=== PATIENT | male | born 1990 | race African-American/Black ===

== ENCOUNTER 2022-07-05 17:05 | Inpatient (IN) | payer OTHER ==
[2022-07-05 18:02] VITALS: BMI 34.8
[2022-07-05] MEDS ORDERED: guaiFENesin 600 MG TABLET.ER (FP) PO PRN (21:52)
[2022-07-05] MEDS ORDERED: IBUPROFEN 600 MG TABLET (FP) PO PRN (21:52)
[2022-07-05] MEDS ORDERED: POLYETHYLENE GLYCOL (HEALTHYLAX) 3350 17 GM PACKET PO PRN (21:52)
[2022-07-05] MEDS ORDERED: ACETAMINOPHEN 325 MG TABLET (FP) PO PRN (21:52)
[2022-07-05] MEDS ORDERED: BENZONATATE 200 MG CAPSULE PO PRN (21:52)
[2022-07-05] MEDS ORDERED: NALOXONE HCL (KLOXXADO) 8 MG SPRAY NS PRN (21:52)
[2022-07-05] MEDS ORDERED: MAGNESIUM HYDROX 2400MG/30ML ORAL SUSPENSION 30 ML CUP PO PRN (21:52)
[2022-07-05] MEDS ORDERED: BENZOCAINE/MENTHOL (CHLORASEPTIC ) LOZENGE MM PRN (21:52)
[2022-07-05] MEDS ORDERED: LOPERAMIDE HCL 2 MG CAPSULE PO PRN (21:52)
[2022-07-05] MEDS ORDERED: NALOXONE HCL 0.4 MG/ML VIAL IM PRN (21:52)
[2022-07-05] MEDS ORDERED: IBUPROFEN 400 MG TABLET (FP) PO PRN (21:52)
[2022-07-05] MEDS: MELATONIN 5 MG TABLETS PO SCH (23:55)
[2022-07-05] MEDS: THIAMINE HCL 100 MG TABLET (FP) PO SCH (23:55)
[2022-07-06] MEDS ORDERED: MAG HYDROX/AL HYDROX/SIMETH 30 ML UNIT-DOSE CUP ONE (00:06)
[2022-07-06] MEDS: MAG HYDROX/AL HYDROX/SIMETH 30 ML UNIT-DOSE CUP PO PRN (00:06)
[2022-07-06] MEDS: PRENATAL VITAMINS W/ FOLIC ACID TABLET (FP) PO SCH (09:45)
[2022-07-06] MEDS: NICOTINE 14 MG/24 HOURS TOPICAL PATCH TD SCH (09:45)
[2022-07-06 11:11] LABS: HEMATOCRIT 46.5 % (35.4-49); HEMOGLOBIN 15.4 GM/dL (11.7-16.9); MCH 26.2 pg (25.7-33.7); MEAN CELL VOLUME 79.3 fl (80-96); MEAN PLT VOLUME 8.8 fl (7.5-11.1); PLATELET COUNT 290 10^3/uL (134-434); RBC 5.87 M/mm3 (4.00-5.60); RDW 14.5 % (11.9-15.9); WHITE BLOOD COUNT 5.6 K/mm3 (4.0-10.0)
[2022-07-06 11:32] LABS: EPI CELLS 21 /uL (0-25.1); HYALINE CASTS 6 /uL (0-3.1); PH,URINE 5.5 (5.0-8.0); URINE APPEARANCE CLEAR; URINE BACTERIA 18 /uL (0-1359); URINE BILIRUBIN NEGATIVE (NEGATIVE); URINE COLOR YELLOW; URINE GLUCOSE (UA) NEGATIVE (NEGATIVE); URINE KETONE NEGATIVE (NEGATIVE); URINE LEUK ESTERASE 1+ (NEGATIVE); URINE NITRITE NEGATIVE (NEGATIVE); URINE PROTEIN NEGATIVE (NEGATIVE); URINE RBC 4 /uL (0-23.9); URINE UROBILINOGEN 0.2 mg/dL (0.2-1.0); URINE WBC 282 /uL (0-25.8)
[2022-07-06 15:53] LABS: ALBUMIN 3.5 g/dl (3.4-5.0); BLOOD UREA NITROGEN 11.6 mg/dL (7-18)
[2022-07-06 15:55] LABS: CREATININE 1.2 mg/dL (0.55-1.3)
[2022-07-06 15:56] LABS: BILIRUBIN,TOTAL 0.3 mg/dL (0.2-1); TOT PROT 7.2 g/dl (6.4-8.2)
[2022-07-06] MEDS: MELATONIN 5 MG TABLETS PO SCH (21:14)
[2022-07-06] MEDS: THIAMINE HCL 100 MG TABLET (FP) PO SCH (21:14)
[2022-07-06] MEDS: OLANZapine 5 MG TABLET PO SCH (21:14)
[2022-07-06] MEDS: traZODone HCL 50 MG TABLET (FP) PO SCH (21:14)
[2022-07-07] MEDS: PRENATAL VITAMINS W/ FOLIC ACID TABLET (FP) PO SCH (09:53)
[2022-07-07] MEDS: NICOTINE 14 MG/24 HOURS TOPICAL PATCH TD SCH (09:53)
[2022-07-07] MEDS: NICOTINE 10 MG CARTRIDGE (INHALER) IH PRN (15:21)
[2022-07-07] MEDS: THIAMINE HCL 100 MG TABLET (FP) PO SCH (21:39)
[2022-07-07] MEDS: MELATONIN 5 MG TABLETS PO SCH (21:39)
[2022-07-07] MEDS: OLANZapine 5 MG TABLET PO SCH (21:39)
[2022-07-07] MEDS: traZODone HCL 50 MG TABLET (FP) PO SCH (21:39)
[2022-07-08] MEDS: NICOTINE 14 MG/24 HOURS TOPICAL PATCH TD SCH (09:46)
[2022-07-08] MEDS: PRENATAL VITAMINS W/ FOLIC ACID TABLET (FP) PO SCH (09:46)
[2022-07-08] MEDS ORDERED: SULFAMETHOXAZOLE/TRIMETHOPRIM 800MG/160MG D.S. TABLET PO SCH (11:30)
[2022-07-08] MEDS: SULFAMETHOXAZOLE/TRIMETHOPRIM 800MG/160MG D.S. TABLET PO SCH ×2 (12:05→21:31)
[2022-07-08] MEDS: traZODone HCL 50 MG TABLET (FP) PO SCH (21:31)
[2022-07-08] MEDS: OLANZapine 5 MG TABLET PO SCH (21:31)
[2022-07-08] MEDS: MELATONIN 5 MG TABLETS PO SCH (21:32)
[2022-07-08] MEDS: THIAMINE HCL 100 MG TABLET (FP) PO SCH (21:32)
[2022-07-09] MEDS: PRENATAL VITAMINS W/ FOLIC ACID TABLET (FP) PO SCH (10:07)
[2022-07-09] MEDS: SULFAMETHOXAZOLE/TRIMETHOPRIM 800MG/160MG D.S. TABLET PO SCH ×2 (10:08→21:19)
[2022-07-09] MEDS: NICOTINE 14 MG/24 HOURS TOPICAL PATCH TD SCH (10:08)
[2022-07-09] MEDS: MELATONIN 5 MG TABLETS PO SCH (21:19)
[2022-07-09] MEDS: OLANZapine 5 MG TABLET PO SCH (21:19)
[2022-07-09] MEDS: traZODone HCL 50 MG TABLET (FP) PO SCH (21:19)
[2022-07-09] MEDS: THIAMINE HCL 100 MG TABLET (FP) PO SCH (21:19)
[2022-07-10] MEDS: NICOTINE 14 MG/24 HOURS TOPICAL PATCH TD SCH (10:29)
[2022-07-10] MEDS: SULFAMETHOXAZOLE/TRIMETHOPRIM 800MG/160MG D.S. TABLET PO SCH ×2 (10:29→21:06)
[2022-07-10] MEDS: PRENATAL VITAMINS W/ FOLIC ACID TABLET (FP) PO SCH (10:29)
[2022-07-10] MEDS: OLANZapine 5 MG TABLET PO SCH (21:06)
[2022-07-10] MEDS: MELATONIN 5 MG TABLETS PO SCH (21:06)
[2022-07-10] MEDS: THIAMINE HCL 100 MG TABLET (FP) PO SCH (21:06)
[2022-07-10] MEDS: traZODone HCL 50 MG TABLET (FP) PO SCH (21:06)
[2022-07-11] MEDS: SULFAMETHOXAZOLE/TRIMETHOPRIM 800MG/160MG D.S. TABLET PO SCH ×2 (10:00→21:12)
[2022-07-11] MEDS: PRENATAL VITAMINS W/ FOLIC ACID TABLET (FP) PO SCH (10:00)
[2022-07-11] MEDS: NICOTINE 14 MG/24 HOURS TOPICAL PATCH TD SCH (10:00)
[2022-07-11] MEDS ORDERED: hydrOXYzine PAMOATE 25 MG CAPSULE (FP) PO PRN (11:01)
[2022-07-11] MEDS: MELATONIN 5 MG TABLETS PO SCH (21:12)
[2022-07-11] MEDS: traZODone HCL 50 MG TABLET (FP) PO SCH (21:12)
[2022-07-11] MEDS: OLANZapine 5 MG TABLET PO SCH (21:12)
[2022-07-11] MEDS: THIAMINE HCL 100 MG TABLET (FP) PO SCH (21:12)
[2022-07-12] MEDS: PRENATAL VITAMINS W/ FOLIC ACID TABLET (FP) PO SCH (10:22)
[2022-07-12] MEDS: NICOTINE 14 MG/24 HOURS TOPICAL PATCH TD SCH (10:22)
[2022-07-12] MEDS: SULFAMETHOXAZOLE/TRIMETHOPRIM 800MG/160MG D.S. TABLET PO SCH ×2 (10:22→21:05)
[2022-07-12] MEDS: OLANZapine 5 MG TABLET PO SCH (21:05)
[2022-07-12] MEDS: THIAMINE HCL 100 MG TABLET (FP) PO SCH (21:05)
[2022-07-12] MEDS: traZODone HCL 50 MG TABLET (FP) PO SCH (21:05)
[2022-07-12] MEDS: MELATONIN 5 MG TABLETS PO SCH (21:05)
[2022-07-13] MEDS: PRENATAL VITAMINS W/ FOLIC ACID TABLET (FP) PO SCH (10:29)
[2022-07-13] MEDS: SULFAMETHOXAZOLE/TRIMETHOPRIM 800MG/160MG D.S. TABLET PO SCH ×2 (10:29→21:13)
[2022-07-13] MEDS: NICOTINE 14 MG/24 HOURS TOPICAL PATCH TD SCH (10:30)
[2022-07-13] MEDS: traZODone HCL 50 MG TABLET (FP) PO SCH (21:13)
[2022-07-13] MEDS: THIAMINE HCL 100 MG TABLET (FP) PO SCH (21:13)
[2022-07-13] MEDS: MELATONIN 5 MG TABLETS PO SCH (21:13)
[2022-07-13] MEDS: OLANZapine 5 MG TABLET PO SCH (21:13)
[2022-07-14] MEDS: SULFAMETHOXAZOLE/TRIMETHOPRIM 800MG/160MG D.S. TABLET PO SCH ×2 (10:36→21:22)
[2022-07-14] MEDS: NICOTINE 14 MG/24 HOURS TOPICAL PATCH TD SCH (10:36)
[2022-07-14] MEDS: PRENATAL VITAMINS W/ FOLIC ACID TABLET (FP) PO SCH (10:36)
[2022-07-14] MEDS: MELATONIN 5 MG TABLETS PO SCH (21:22)
[2022-07-14] MEDS: traZODone HCL 50 MG TABLET (FP) PO SCH (21:22)
[2022-07-14] MEDS: OLANZapine 5 MG TABLET PO SCH (21:22)
[2022-07-14] MEDS: THIAMINE HCL 100 MG TABLET (FP) PO SCH (21:22)
[2022-07-15] MEDS: PRENATAL VITAMINS W/ FOLIC ACID TABLET (FP) PO SCH (10:04)
[2022-07-15] MEDS: SULFAMETHOXAZOLE/TRIMETHOPRIM 800MG/160MG D.S. TABLET PO SCH (10:04)
[2022-07-15] MEDS: NICOTINE 14 MG/24 HOURS TOPICAL PATCH TD SCH (10:05)
[2022-07-15] MEDS: SODIUM CHLORIDE NASAL SPRAY 44 ML BOTTLE NS PRN (21:16)
[2022-07-15] MEDS: MELATONIN 5 MG TABLETS PO SCH (21:16)
[2022-07-15] MEDS: THIAMINE HCL 100 MG TABLET (FP) PO SCH (21:16)
[2022-07-15] MEDS: traZODone HCL 50 MG TABLET (FP) PO SCH (21:16)
[2022-07-15] MEDS: OLANZapine 5 MG TABLET PO SCH (21:16)
[2022-07-15] MEDS: LORATADINE 10 MG TABLET PO PRN (23:36)
[2022-07-16] MEDS: PRENATAL VITAMINS W/ FOLIC ACID TABLET (FP) PO SCH (10:32)
[2022-07-16] MEDS: NICOTINE 14 MG/24 HOURS TOPICAL PATCH TD SCH (10:32)
[2022-07-16] MEDS: THIAMINE HCL 100 MG TABLET (FP) PO SCH (21:20)
[2022-07-16] MEDS: MELATONIN 5 MG TABLETS PO SCH (21:20)
[2022-07-16] MEDS: traZODone HCL 50 MG TABLET (FP) PO SCH (21:20)
[2022-07-16] MEDS: OLANZapine 5 MG TABLET PO SCH (21:20)
[2022-07-16] MEDS: LORATADINE 10 MG TABLET PO PRN (21:21)
[2022-07-16] MEDS: SODIUM CHLORIDE NASAL SPRAY 44 ML BOTTLE NS PRN (21:22)
[2022-07-17] MEDS: PRENATAL VITAMINS W/ FOLIC ACID TABLET (FP) PO SCH (09:42)
[2022-07-17] MEDS: NICOTINE 14 MG/24 HOURS TOPICAL PATCH TD SCH (09:43)
[2022-07-17] MEDS: OLANZapine 5 MG TABLET PO SCH (21:25)
[2022-07-17] MEDS: LORATADINE 10 MG TABLET PO PRN (21:25)
[2022-07-17] MEDS: traZODone HCL 50 MG TABLET (FP) PO SCH (21:25)
[2022-07-17] MEDS: MELATONIN 5 MG TABLETS PO SCH (21:25)
[2022-07-17] MEDS: THIAMINE HCL 100 MG TABLET (FP) PO SCH (21:25)
[2022-07-18] MEDS: PRENATAL VITAMINS W/ FOLIC ACID TABLET (FP) PO PRN (09:44)
[2022-07-18] MEDS: NICOTINE 14 MG/24 HOURS TOPICAL PATCH TD SCH (10:24)
[2022-07-18] MEDS: MAG HYDROX/AL HYDROX/SIMETH 30 ML UNIT-DOSE CUP PO PRN (18:57)
[2022-07-18] MEDS: MELATONIN 5 MG TABLETS PO SCH (21:20)
[2022-07-18] MEDS: THIAMINE HCL 100 MG TABLET (FP) PO SCH (21:20)
[2022-07-18] MEDS: OLANZapine 5 MG TABLET PO SCH (21:21)
[2022-07-18] MEDS: traZODone HCL 50 MG TABLET (FP) PO SCH (21:21)
[2022-07-18] MEDS: LORATADINE 10 MG TABLET PO PRN (21:21)
[2022-07-18] MEDS: SODIUM CHLORIDE NASAL SPRAY 44 ML BOTTLE NS PRN (21:21)
[2022-07-19] MEDS: PRENATAL VITAMINS W/ FOLIC ACID TABLET (FP) PO PRN (09:59)
[2022-07-19] MEDS: NICOTINE 14 MG/24 HOURS TOPICAL PATCH TD SCH (10:00)
[2022-07-19] MEDS: OLANZapine 5 MG TABLET PO SCH (21:29)
[2022-07-19] MEDS: THIAMINE HCL 100 MG TABLET (FP) PO SCH (21:29)
[2022-07-19] MEDS: MELATONIN 5 MG TABLETS PO SCH (21:29)
[2022-07-19] MEDS: LORATADINE 10 MG TABLET PO PRN (21:29)
[2022-07-19] MEDS: traZODone HCL 50 MG TABLET (FP) PO SCH (21:29)
[2022-07-20] MEDS: PRENATAL VITAMINS W/ FOLIC ACID TABLET (FP) PO PRN (10:11)
[2022-07-20] MEDS: NICOTINE 14 MG/24 HOURS TOPICAL PATCH TD SCH (10:11)
[2022-07-20] MEDS: MELATONIN 5 MG TABLETS PO SCH (21:39)
[2022-07-20] MEDS: THIAMINE HCL 100 MG TABLET (FP) PO SCH (21:39)
[2022-07-20] MEDS: OLANZapine 5 MG TABLET PO SCH (21:39)
[2022-07-20] MEDS: traZODone HCL 50 MG TABLET (FP) PO SCH (21:39)
[2022-07-20] MEDS: SODIUM CHLORIDE NASAL SPRAY 44 ML BOTTLE NS PRN (21:40)
[2022-07-20] MEDS: LORATADINE 10 MG TABLET PO PRN (21:40)
[2022-07-21] MEDS: NICOTINE 14 MG/24 HOURS TOPICAL PATCH TD SCH (10:47)
[2022-07-21] MEDS: THIAMINE HCL 100 MG TABLET (FP) PO SCH (21:45)
[2022-07-21] MEDS: traZODone HCL 50 MG TABLET (FP) PO SCH (21:45)
[2022-07-21] MEDS: OLANZapine 5 MG TABLET PO SCH (21:45)
[2022-07-21] MEDS: MELATONIN 5 MG TABLETS PO SCH (21:46)
[2022-07-21] MEDS: LORATADINE 10 MG TABLET PO PRN (21:47)
[2022-07-21] MEDS: SODIUM CHLORIDE NASAL SPRAY 44 ML BOTTLE NS PRN (21:48)
[2022-07-22] MEDS: NICOTINE 14 MG/24 HOURS TOPICAL PATCH TD SCH (10:01)
[2022-07-22] MEDS: THIAMINE HCL 100 MG TABLET (FP) PO SCH (21:17)
[2022-07-22] MEDS: MELATONIN 5 MG TABLETS PO SCH (21:17)
[2022-07-22] MEDS: OLANZapine 5 MG TABLET PO SCH (21:17)
[2022-07-22] MEDS: traZODone HCL 50 MG TABLET (FP) PO SCH (21:17)
[2022-07-22] MEDS: LORATADINE 10 MG TABLET PO PRN (21:19)
[2022-07-23] MEDS: NICOTINE 14 MG/24 HOURS TOPICAL PATCH TD SCH (10:13)
[2022-07-23] MEDS: SODIUM CHLORIDE NASAL SPRAY 44 ML BOTTLE NS PRN (21:28)
[2022-07-23] MEDS: MELATONIN 5 MG TABLETS PO SCH (21:28)
[2022-07-23] MEDS: traZODone HCL 50 MG TABLET (FP) PO SCH (21:28)
[2022-07-23] MEDS: LORATADINE 10 MG TABLET PO PRN (21:28)
[2022-07-23] MEDS: THIAMINE HCL 100 MG TABLET (FP) PO SCH (21:29)
[2022-07-23] MEDS: OLANZapine 5 MG TABLET PO SCH (21:29)
[2022-07-24] MEDS: NICOTINE 14 MG/24 HOURS TOPICAL PATCH TD SCH (10:27)
[2022-07-24] MEDS: THIAMINE HCL 100 MG TABLET (FP) PO SCH (21:13)
[2022-07-24] MEDS: LORATADINE 10 MG TABLET PO PRN (21:14)
[2022-07-24] MEDS: traZODone HCL 50 MG TABLET (FP) PO SCH (21:14)
[2022-07-24] MEDS: MELATONIN 5 MG TABLETS PO SCH (21:14)
[2022-07-24] MEDS: OLANZapine 5 MG TABLET PO SCH (21:14)
[2022-07-24] MEDS: SODIUM CHLORIDE NASAL SPRAY 44 ML BOTTLE NS PRN (21:15)
[2022-07-25] MEDS: NICOTINE 14 MG/24 HOURS TOPICAL PATCH TD SCH (09:13)
[2022-07-25] MEDS: PRENATAL VITAMINS W/ FOLIC ACID TABLET (FP) PO PRN (09:47)
[2022-07-25] MEDS: traZODone HCL 50 MG TABLET (FP) PO SCH (21:11)
[2022-07-25] MEDS: OLANZapine 5 MG TABLET PO SCH (21:11)
[2022-07-25] MEDS: MELATONIN 5 MG TABLETS PO SCH (21:11)
[2022-07-25] MEDS: THIAMINE HCL 100 MG TABLET (FP) PO SCH (21:11)
[2022-07-25] MEDS: SODIUM CHLORIDE NASAL SPRAY 44 ML BOTTLE NS PRN (21:11)
[2022-07-25] MEDS: LORATADINE 10 MG TABLET PO PRN (21:11)
[2022-07-26] MEDS: NICOTINE 14 MG/24 HOURS TOPICAL PATCH TD SCH (10:29)
[2022-07-26] MEDS: MELATONIN 5 MG TABLETS PO SCH (21:18)
[2022-07-26] MEDS: OLANZapine 5 MG TABLET PO SCH (21:19)
[2022-07-26] MEDS: THIAMINE HCL 100 MG TABLET (FP) PO SCH (21:19)
[2022-07-26] MEDS: traZODone HCL 50 MG TABLET (FP) PO SCH (21:19)
[2022-07-26] MEDS: LORATADINE 10 MG TABLET PO PRN (21:21)
[2022-07-26] MEDS: SODIUM CHLORIDE NASAL SPRAY 44 ML BOTTLE NS PRN (21:21)
[2022-07-27] MEDS: NICOTINE 14 MG/24 HOURS TOPICAL PATCH TD SCH (09:52)
[2022-07-27] MEDS: NICOTINE 10 MG CARTRIDGE (INHALER) IH PRN (16:34)
[2022-07-27] MEDS: THIAMINE HCL 100 MG TABLET (FP) PO SCH (21:17)
[2022-07-27] MEDS: SODIUM CHLORIDE NASAL SPRAY 44 ML BOTTLE NS PRN (21:17)
[2022-07-27] MEDS: MELATONIN 5 MG TABLETS PO SCH (21:17)
[2022-07-27] MEDS: LORATADINE 10 MG TABLET PO PRN (21:18)
[2022-07-27] MEDS: traZODone HCL 50 MG TABLET (FP) PO SCH (21:18)
[2022-07-27] MEDS: OLANZapine 5 MG TABLET PO SCH (21:18)
[2022-07-28 07:26] VITALS: RESP 18
[2022-07-28] MEDS: NICOTINE 14 MG/24 HOURS TOPICAL PATCH TD SCH (10:20)
[2022-07-28] MEDS: THIAMINE HCL 100 MG TABLET (FP) PO SCH (21:14)
[2022-07-28] MEDS: MELATONIN 5 MG TABLETS PO SCH (21:14)
[2022-07-28] MEDS: traZODone HCL 50 MG TABLET (FP) PO SCH (21:14)
[2022-07-28] MEDS: OLANZapine 5 MG TABLET PO SCH (21:14)
[2022-07-28] MEDS: LORATADINE 10 MG TABLET PO PRN (21:14)
[2022-07-28] MEDS: SODIUM CHLORIDE NASAL SPRAY 44 ML BOTTLE NS PRN (21:15)
[2022-07-29 06:35] VITALS: BP 128/74; PULSE 63; TEMP 96.9
== END 2022-07-29 09:16 | disposition home or self-care (01) | DRG 772 ==
LOC: YASAS 17:05 → Y3W 07-06 00:33
PROVIDERS: ADMIT Allergy & Immunology; ATTEND Psychiatry & Neurology Pain Medicine
PROC: HZ42ZZZ Group Counseling for Substance Abuse Treatment, Cognitive-Behavioral (ICD-10-PCS; principal; 2022-07-06)
DX: F10.20 Alcohol dependence, uncomplicated (principal); F15.20 Other stimulant dependence, uncomplicated; F12.20 Cannabis dependence, uncomplicated; F17.210 Nicotine dependence, cigarettes, uncomplicated; F20.9 Schizophrenia, unspecified; F41.9 Anxiety disorder, unspecified; F32.A Depression, unspecified; J30.9 Allergic rhinitis, unspecified; N39.0 Urinary tract infection, site not specified
CPT/HCPCS: 36415; 80053; 81003; 85027; 86780; 93005; 93010; C9803-CS; U0003; U0005